=== PATIENT | female | born 1935 | race Caucasian/White ===

== ENCOUNTER → 2017-03-24 | Outpatient (CLI) | payer OTHER, BC ==
[~2017-03-24] MED LIST: ALTACE1.25 M1 PO; ALTACE10 MG PO; ASCORBIC ACID100 MG PO; CELEBREX50 MG PO; CITRACAL D + H1 EACH PO; CYANOCOBAL1000 MCG/2 IM; DAILY VITAMIN1 EAC8 PO; DOXYCYCLINE HY100 MG PO; GLUCOPHAGE500 MG PO; GLUCOSAMINE &1 EAC1 PO; GLUCOVANCE 51 TABLET PO; HYDROCHLOROTH12.5 M3 PO; HYDROCHLOROTHIA50 MG PO; K-TAB10 MEQ PO; LO-DOSE ASPIRIN81 M1 PO; LOVAZA1 GM PO; NOVOLOG PE100 UNITS/ SC; POTASSIUM-9999 MG; TOPROL XL6.25 MG PO; ULTRAM50 MG PO; VITAMIN C1000 MG PO
== END | disposition home or self-care (01) ==
LOC: NUC 08:19
DX: R68.81 Early satiety (principal)
CPT/HCPCS: 78264; A9541